=== PATIENT | female | born 1995 | race Two or more races ===

== ENCOUNTER 2020-08-23 12:18 | Emergency (ER) | payer BC ==
[~2020-08-23] VITALS: Ht 162.6 cm; Wt 59.0 kg
--- NOTE | 2020-08-23 12:40 | NUR ---
ED Nurse Note: Pt walked in from home c/o left sided intermittent chest pain that started yesterday. Pt also reporting left upper arm numbness. Respirations even and unlabored on room air. Vitals stable as documented. A+Ox4, speaking in complete sentences.
[2020-08-23 12:45] VITALS: BP 122/76
[2020-08-23 13:10] LABS: BASOPHILS % (AUTO) 1.4 % (0.0-2.0); EOSINOPHILS % (AUTO) 4.2 % (0.0-3.0); HEMOGLOBIN 13.1 G/DL (12.0-16.0); LYMPHOCYTES % (AUTO) 40.2 % (20.0-45.0); MEAN CORPUSCULAR VOLUME 98 FL (80-99); NEUTROPHILS % (AUTO) 48.2 % (45.0-75.0); PLATELET COUNT 227 K/UL (150-450); RED BLOOD COUNT 4.16 M/UL (4.20-5.40); RED CELL DISTRIBUTION WIDTH 11.5 % (11.6-14.8); WHITE BLOOD COUNT 4.7 K/UL (4.8-10.8)
[2020-08-23 13:19] LABS: ANION GAP 8 mmol/L (5-15); BLOOD UREA NITROGEN 12 mg/dL (7-18); CALCIUM 9.2 MG/DL (8.5-10.1); CARBON DIOXIDE 28 MMOL/L (21-32); CHLORIDE 104 MMOL/L (98-107); CREATININE 0.7 MG/DL (0.55-1.30); SODIUM 140 MMOL/L (136-145)
[2020-08-23 13:34] LABS: ALANINE AMINOTRANSFERASE 21 U/L (12-78); ALBUMIN 4.1 G/DL (3.4-5.0); ALBUMIN/GLOBULIN RATIO 1.2 (1.0-2.7); ALKALINE PHOSPHATASE 63 U/L (46-116); ASPARTATE AMINO TRANSFERASE 22 U/L (15-37); BILIRUBIN,TOTAL 0.5 MG/DL (0.2-1.0)
[2020-08-23 13:39] LABS: APPEARANCE,URINE SLIGHTLY CLOUDY; BILIRUBIN, URINE NEGATIVE (NEGATIVE); COLOR,URINE PALE YELLOW; GLUCOSE, URINE (UA) NEGATIVE (NEGATIVE); KETONES,URINE NEGATIVE (NEGATIVE); LEUKOCYTE ESTERASE ,URINE NEGATIVE (NEGATIVE); NITRITE,URINE NEGATIVE (NEGATIVE); PH,URINE 8 (4.5-8.0); PROTEIN,URINE 1+ (NEGATIVE); UROBILINOGEN,URINE NORMAL MG/DL (0.0-1.0)
--- NOTE | 2020-08-23 14:21 | Emergency Room Report ---
History of Present Illness General Chief Complaint: Chest Pain Source: Patient Present Illness HPI 25-year-old female presents to the emergency department complaining of intermittent episodes of left-sided chest pain that has been going on for almost 2 years. Patient reports that typically she will experience pain that only last several seconds and does not recur for several months. Patient reports that at 5 AM this morning she awoke from her sleep due to having pain in the left side of her chest she describes as sharp and rates it as 8 out of 10 severity. Patient states that it did not resolve on its own for almost 2 hours. Patient denies cough, recent illness, shortness of breath, palpitations. She does report that she has been having some intermittent numbness to the back of her left arm that is happened twice. Patient denies symptoms of paresthesias at this time. She reports that on her father side several persons have heart conditions that she is not sure about. She denies significant past medical history except for intermittent asthma in childhood. She denies burning sensation or history of GERD. She denies nausea or vomiting. She reports her pain currently has subsided. 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 COVID-19 Screening: Negative COVID-19 COVID-19 Testing Source: 4 days ago Patient History Past Medical History: see triage record Past Surgical History: none Pertinent Family History: none Last Menstrual Period: 08/17/20 Now: No Reviewed Nursing Documentation: PMH: Agreed; PSxH: Agreed Nursing Documentation-PMH Past Medical History: No History, Except For Hx Asthma: Yes Review of Systems All Other Systems: negative except mentioned in HPI Physical Exam Vital Signs Date Time Temp Pulse Resp B/P (MAP) Pulse Ox O2 Delivery O2 Flow Rate FiO2 08/23/20 12:32 98.4 68 20 114/71 (85) 94 Room Air Sp02 EP Interpretation: reviewed, normal General Appearance: no apparent distress, alert, GCS 15, non-toxic Head: normocephalic, atraumatic Eyes: bilateral eye normal inspection, bilateral eye PERRL ENT: hearing grossly normal, normal voice Neck: full range of motion Respiratory: chest non-tender, lungs clear, normal breath sounds, speaking full sentences Cardiovascular #1: regular rate, rhythm, no edema Gastrointestinal: normal bowel sounds, non tender, soft Rectal: deferred Genitourinary: normal inspection Musculoskeletal: back normal, normal range of motion, gait/station normal, non- tender Neurologic: alert, motor strength/tone normal, oriented x3, sensory intact, responsive, speech normal Psychiatric: judgement/insight normal Lymphatic: no adenopathy Medical Decision Making PA Attestation Dr. Ambrosio Is my supervising Physician whom patient management has been discussed with. Diagnostic Impression: Primary Impression: Nonspecific chest pain Additional Impression: Gastritis Qualified Codes: K29.70 - Gastritis, unspecified, without bleeding ER Course 25-year-old female presents to the emergency department complaining of intermittent episodes of left-sided chest pain that has been going on for almost 2 years. Patient reports that typically she will experience pain that only last several seconds and does not recur for several months. Patient reports that at 5 AM this morning she awoke from her sleep due to having pain in the left side of her chest she describes as sharp and rates it as 8 out of 10 severity. Patient states that it did not resolve on its own for almost 2 hours. Patient denies cough, recent illness, shortness of breath, palpitations. She does report that she has been having some intermittent numbness to the back of her left arm that is happened twice. Patient denies symptoms of paresthesias at this time. She reports that on her father side several persons have heart conditions that she is not sure about. She denies significant past medical history except for intermittent asthma in childhood. She denies burning sensation or history of GERD. She denies nausea or vomiting. She reports her pain currently has subsided. Ddx considered but are not limited to [place], pneumonia, contusion, costochondritis, PE, ACS, Shoulder strain, Chest wall contusion. aortic dissection. Vital signs: are WNL, pt. is afebrile H&PE are most consistent with nontraumatic chest pain in a person with low cardiac risk factors. ORDERS: - EK sinus sony -CBC: WNL -CMP:WNL -CK-MB: WNL -Troponin: WNL CXR: WNL -D-Dimer: WNL ED INTERVENTIONS: - PT. placed on cardiac monitoring. -I do not identify an emergent condition at this time. With current presentation, pt. is stable for close outpatient follow up and conservative treatment. D/w pt. to return promptly to ED with worsening or new symptoms.- Pt. verbalizes' understanding and agreement with proposed treatment plan.proposed treatment plan. DISCHARGE: At this time pt. is stable for d/c to home. Will provide printed patient care instructions, and any necessary prescriptions. Care plan and follow up instructions have been discussed with the patient prior to discharge. EKG Diagnostic Results Troponin ordered: Yes When was troponin ordered?: Aug 23, 2020 EKG Time: 12:42 Rate: bradycardiac - 59 bpm Rhythm: NSR ST Segments: no acute changes Other Impression Incomplete RBBB ASA given to the pt in ED: No PA Scribe Text This Interpretation was scribed by FRANKIE Horner. Last Vital Signs Date Time Temp Pulse Resp B/P (MAP) Pulse Ox O2 Delivery O2 Flow Rate FiO2 08/23/20 12:45 73 20 Room Air 08/23/20 12:45 98.2 122/76 96 Status: improved Disposition: HOME, SELF-CARE Condition: Stable Scripts Naproxen* (NAPROXEN*) 375 Mg Tablet.dr 375 MG ORAL TWICE A DAY for 7 Days, #14 TAB Prov: Ariadne Horner 08/23/20 Famotidine* (Pepcid 20mg tablet*) 20 Mg Tablet 20 MG ORAL TWICE A DAY for Gerd for 7 Days, #14 TAB 0 Refills Prov: Ariadne Horner 08/23/20 Referrals: NOT CHOSEN IPA/MD,REFERRING (PCP) Patient Instructions: Nonspecific Chest Pain Additional Instructions: Take medications as directed. Follow up with a Primary Care Provider in 3-5 days, even if your symptoms have resolved. FOLLOW UP WITH A [facility] DRIVER FOR FURTHER OUTPATIENT EVALUATION AND BRING YOUR EKG WITH YOU Return sooner to ED if new symptoms occur, or current symptoms become worse. - Please note that this Emergency Department Report was dictated using [employer] technology software, occasionally this can lead to erroneous entry secondary to interpretation by the dictation equipment. Ariadne Horner Aug 23, 2020 14:21
[2020-08-23] MEDS ORDERED: NAPROXEN375 M2 ORAL (14:22)
[2020-08-23] MEDS ORDERED: FAMOTIDINE20 MG ORAL (14:22)
[2020-08-23 14:45] VITALS: BP 128/72
--- NOTE | 2020-08-23 14:45 | NUR ---
ER DISCHARGE NOTE: Patient is cleared to be discharged per ERMD, pt is aox4, on room air, with stable vital signs. pt was given dc and prescription instructions, pt was able to verbalize understanding, pt id band and iv site removed without complications. pt is able to ambulate with steady gait. pt took all belongings.
--- NOTE | 2020-08-23 15:19 | Diagnostic Imaging Report ---
Indication: Chest pain Technique: One view of the chest Comparison: none Findings: Lungs and pleural spaces are clear. Heart size is normal. Impression: No acute process
== END 2020-08-23 14:45 | disposition home or self-care (01) ==
LOC: EMR 13:49
DX: R07.89 Other chest pain (principal); K29.70 Gastritis, unspecified, without bleeding; J45.909 Unspecified asthma, uncomplicated
CPT/HCPCS: 36415; 71045; 80053; 80307; 81003; 81025; 84484; 85025; 85379; 93005; 99283; U0002